=== PATIENT | female | born 1955 | race Caucasian/White ===

== ENCOUNTER 2017-04-28 05:21 | Inpatient (IN) | payer OTHER ==
[~2017-04-28] VITALS: Ht 165.1 cm; Wt 63.5 kg
--- NOTE | 2017-04-28 05:25 | NUR ---
TO BED 1 A 62 YO FEMALE PT BIBSELF C/O LEFT SIDED CHEST PAIN X 3 HOURS, TOOK 1 SPRAY OF NITRO AND 162 OF ASA, PT DENIES PAIN AT THIS TIME. NAD NOTED. VSS. BREATHING EVEN AND UNLABORED. GOWNED. PLACED ON CARDIAC AND VS MONITORING. COMFORT MEASURES RENDERED. DAUGHTER AT BEDSIDE.
--- NOTE | 2017-04-28 05:38 | NUR ---
TELE BED 327.2
--- NOTE | 2017-04-28 05:40 | NUR ---
started a saline lock on the right wrist g20, blood drawn and sent to lab.
--- NOTE | 2017-04-28 05:43 | NUR ---
xr tech at bedside.
[2017-04-28] MEDS ORDERED: CLON0.5T4 PO (05:59)
[2017-04-28] MEDS ORDERED: CARB200T PO (05:59)
[2017-04-28 06:00] LABS: BASOPHILS % (AUTO) 0.7 % (0.0-2.0); EOSINOPHILS # (AUTO) 0.1 /CMM (0.0-0.7); EOSINOPHILS % (AUTO) 1.1 % (0.0-6.0); HEMATOCRIT 37 % (33-45); HEMOGLOBIN 12.9 g/dL (11.5-14.8); LYMPHOCYTES # (AUTO) 1.8 /CMM (0.8-4.8); LYMPHOCYTES % (AUTO) 36.1 % (20.0-44.0); MEAN CORPUSCULAR HEMOGLOBIN 30 PG (26.0-33.0); MEAN CORPUSCULAR HGB CONC 35 g/dl (31.0-36.0); MEAN CORPUSCULAR VOLUME 87 fL (82-100); MONOCYTES # (AUTO) 0.4 /CMM (0.1-1.30); MONOCYTES % (AUTO) 9.1 % (2.0-12.0); NEUTROPHILS # (AUTO) 2.6 /CMM (1.8-8.9); PLATELET COUNT (AUTO) 192 /CMM (150-450); RDW COEFFICIENT OF VARIATION 12.6 (11.5-15.0); RED BLOOD CELL COUNT(AUTO) 4.26 MIL/uL (4.0-5.2); WHITE BLOOD COUNT (AUTO) 4.9 K/uL (4.3-11.0)
[2017-04-28 06:01] LABS: CARBON DIOXIDE 27 mmol/L (21-32); CHLORIDE 105 mmol/L (98-107); CREATININE 0.8 mg/dL (0.6-1.3); GLUCOSE 106 mg/dL (74-106); SODIUM SERUM 141 mmol/L (136-145); UREA NITROGEN, BLOOD 26 mg/dL (7-18)
[2017-04-28 06:06] LABS: INR 0.9 (0.87-1.13); PROTHROMBIN TIME 9.4 SECS (9.5-12.7)
[2017-04-28 06:10] LABS: TROPONIN I < 0.017 ng/mL (0.00-0.056)
--- NOTE | 2017-04-28 06:14 | NUR ---
Dr Hyman at bedside to eval.
--- NOTE | 2017-04-28 06:16 | NUR ---
Report given to Mamta GUERRERO for admission and tiffany.
--- NOTE | 2017-04-28 07:45 | NUR ---
TELE/SUPERVISOR AIRPLANE FLIGHT ATTENDANT NOTE PATIENT ADMITTED TO TELE IN STABLE CONDITION. A/O X 4. NO SIGNS OF ACUTE DISTRESS. NO COMPLAIN OF PAIN OR DISCOMFORT. NPO STATUS AT THIS TIME SECONDARY TO STRESS TEST SCHEDULE DURING NOON TIME. ALL NEEDS ATTENDED TO .CALL LIGHT WITHIN REACH WILL CONTINUE TO MONITOR TO ENSURE SAFETY.
[2017-04-28] MEDS ORDERED: REGADENOSON 0.4 MG/5 ML DISP.SYRIN IVP ONE (08:00)
--- NOTE | 2017-04-28 08:00 | NUR ---
TELE/RN SEEN BY DR ROLLE PATIENT SEEN BY DR ROLLE WITH ORDERS TO LEXISCAN NUCLEAR STRESS TEST.
[2017-04-28 08:47] LABS: MAGNESIUM 2.2 mg/dL (1.8-2.4); PHOSPHORUS 4.8 mg/dL (2.5-4.9)
--- NOTE | 2017-04-28 09:30 | NUR ---
TELE/RN CONSENT CONSENT FOR LEXISCAN NUCLEAR STRESS TEST OBTAINED BY DR ROLLE.
[2017-04-28] MEDS ORDERED: clonazePAM 0.5 MG TABLET PO PRN (10:00)
[2017-04-28 10:39] LABS: THYROID STIMULATING HORMONE 7.038 uIU/mL (0.358-3.74)
[2017-04-28] MEDS ORDERED: CARBAMAZEPINE 200 MG TABLET PO SCH (12:00)
[2017-04-28 16:00] VITALS: BP 117/69
--- NOTE | 2017-04-28 18:53 | NUR ---
MS/BUSINESS CONTINUITY CONSULTANT PATIENT LEFT IN STABLE CONDITION. A/O X 4. NO SIGNS OF ACUTE DISTRESS. NO COMPLAIN OF PAIN OR DISCOMFORT. ALL NEEDS ATTENDED TO. DISCHARGE INSTRUCTIONS AND TEACHING PROVIDED ALSO MADE AWARE TO FOLLOW UP WITH PRIMARY PHYSICIAN. VERBALIZED UNDERSTANDING. PATIENT REQUESTED DR ROLLE'S INFO SO THEY CAN FOLLOW UP OUTPATIENT. DR ROLLE OFFICE CARD PROVIDED. ALL NEEDS ATTENDED TO. IV LINE AND NAME BAND REMOVED. LEFT VIA PRIVATE CAR ACCOMPANIED BY DAUGHTER.
== END 2017-04-28 18:41 | disposition home or self-care (01) | DRG 313 ==
LOC: ER 05:25 → TELE 07:22 → MED 15:42
PROVIDERS: ADMIT Internal Medicine; ATTEND Internal Medicine
DX: R07.89 Other chest pain (principal); E78.5 Hyperlipidemia, unspecified; F41.9 Anxiety disorder, unspecified; I10 Essential (primary) hypertension; Z91.19 Patient's noncompliance with other medical treatment and regimen; Z87.891 Personal history of nicotine dependence; G43.909 Migraine, unspecified, not intractable, without status migrainosus; Z79.899 Other long term (current) drug therapy; G40.909 Epilepsy, unspecified, not intractable, without status epilepticus
CPT/HCPCS: 36415; 71010-TC; 80048-TC; 80061-TC; 82728-TC; 83540-TC; 83735-TC; 84100-TC; 84439-TC; 84443-TC; 84484-TC; 85025-TC; 85378-TC; 85730-TC; 87081-TC; 93307-TC; A4606; A9502; J2785; Z7610